=== PATIENT | female | born 1950 | race Caucasian/White ===

== ENCOUNTER 2017-09-07 21:54 | Inpatient (IN) | payer OTHER ==
[~2017-09-07] VITALS: Ht 154.9 cm; Wt 54.1 kg
[2017-09-07 23:04] LABS: HEMATOCRIT 38.7 % (36.0-46.0); HEMOGLOBIN 13.6 G/DL (11.9-15.5); MCH 30.9 PG (29.0-34.0); MCHC 35.1 G/DL (30.0-36.0); PLATELET COUNT 160 K/uL (156-360); RBC DIS.WIDTH-SD 41.9 % (39-53); WHITE BLOOD COUNT 3.6 K/uL (4.1-10.2)
[2017-09-07 23:12] LABS: ALBUMIN 4.3 g/dL (3.2-4.8); CHLORIDE 107 mEq/L (99-109); POTASSIUM 3.6 mEq/L (3.7-5.4); SODIUM 140 mEq/L (136-147)
[2017-09-07 23:14] LABS: GLUCOSE 95 mg/dL (70-99); TOTAL PROTEIN 6.6 g/dL (6.4-8.3)
[2017-09-07 23:16] LABS: TOTAL BILIRUBIN 0.4 mg/dL (0.0-1.0)
[2017-09-07 23:18] LABS: ALKALINE PHOSPHATASE 103 IU/L (3-129); CREATININE 0.8 mg/dL (0.6-1.3); GFR ESTIMATE (CALCULATED) > 59 mL/min/
[2017-09-07 23:19] LABS: UREA NITROGEN (BUN) 9 mg/dL (9-23)
[2017-09-07 23:20] LABS: AST (GOT) 19 IU/L (2-34)
[2017-09-07 23:21] LABS: ALT (GPT) 15 IU/L (3-49)
[2017-09-07 23:22] LABS: TROP-I INTERPRETATION NEGATIVE; TROPONIN-I < 0.01 ng/mL (0.0-0.30)
[2017-09-08] MEDS ORDERED: CLONAZEPAM1 MG PO (01:06)
[2017-09-08] MEDS ORDERED: LISINOPRIL20 MG PO (01:06)
[2017-09-08] MEDS ORDERED: VENTOLIN HFA18 GM IH (01:07)
[2017-09-08] MEDS ORDERED: IMDUR120 MG PO (01:07)
[2017-09-08] MEDS ORDERED: TRAZODONE HCL50 MG PO (01:07)
[2017-09-08] MEDS ORDERED: AMLODIPINE BESYL5 MG PO (01:07)
[2017-09-08] MEDS ORDERED: PROZAC20 MG PO (01:07)
[2017-09-08] MEDS ORDERED: ADULT ASPIRIN81 MG PO (01:08)
[2017-09-08] MEDS ORDERED: ERGOCALCIF50000 UNIT PO (01:08)
[2017-09-08] MEDS ORDERED: LIPITOR40 MG PO (01:08)
[2017-09-08 01:22] LABS: APPEARANCE CLEAR ((CLEAR)); BILIRUBIN NEGATIVE; BLOOD SMALL; COLOR STRAW ((YELLOW)); GLUCOSE (STRIP) NEGATIVE; KETONES NEGATIVE; LEUKOCYTES SMALL; NITRITE NEGATIVE; PROTEIN (STRIP) NEGATIVE; UROBILINOGEN 0.2 MG/DL (0.2-1.0)
[2017-09-08 01:28] LABS: BACTERIA RARE /HPF; EPITHELIAL CELLS 1+ /HPF; MUCUS NONE SEEN /LPF; RED BLOOD CELLS 0-5 /HPF (0-5); UCUL ADDED? NO; WHITE BLOOD CELLS 0-5 /HPF (0-5)
[2017-09-08 04:55] VITALS: BP 140/71
[2017-09-08 05:20] VITALS: BP 140/71
[2017-09-08 06:16] LABS: HEMATOCRIT 37.9 % (36.0-46.0); MCHC 34.3 G/DL (30.0-36.0); MCV 87.5 FL (83-99); PLATELET COUNT 147 K/uL (156-360); RBC DIS.WIDTH-CV 12.9 % (11.8-14.6); RBC DIS.WIDTH-SD 41.9 % (39-53); RED BLOOD COUNT 4.33 M/uL (3.80-5.20); WHITE BLOOD COUNT 3.9 K/uL (4.1-10.2)
[2017-09-08 06:29] LABS: TROP-I INTERPRETATION NEGATIVE; TROPONIN-I < 0.01 ng/mL (0.0-0.30)
[2017-09-08 06:38] LABS: ALBUMIN 4.2 G/DL (3.2-4.8); ALKALINE PHOSPHATASE 82 IU/L (3-129); ALT (GPT) 13 IU/L (3-49); AST (GOT) 17 IU/L (2-34); CHLORIDE 103 MEQ/L (99-109); CREATININE 0.7 MG/DL (0.6-1.3); GFR ESTIMATE (CALCULATED) > 59 mL/min/; GLUCOSE 125 mg/dL (70-99); POTASSIUM 3.4 MEQ/L (3.7-5.4); SODIUM 139 MEQ/L (136-147); TOTAL BILIRUBIN 0.3 MG/DL (0.0-1.0); UREA NITROGEN (BUN) 7 mg/dL (9-23)
[2017-09-08 08:25] VITALS: BP 118/59
[2017-09-08 12:29] VITALS: BP 133/58
[2017-09-08 12:36] LABS: TROP-I INTERPRETATION NEGATIVE; TROPONIN-I < 0.01 ng/mL (0.0-0.30)
[2017-09-08 17:22] VITALS: BP 101/55
[2017-09-08 20:29] VITALS: BP 131/64
[2017-09-09] VITALS (7 sets, daily range): BP systolic 117–153; BP diastolic 60–82
[2017-09-09 05:56] LABS: HEMATOCRIT 35.4 % (36.0-46.0); HEMOGLOBIN 12.2 G/DL (11.9-15.5); MCH 30.8 PG (29.0-34.0); MCHC 34.5 G/DL (30.0-36.0); MCV 89.4 FL (83-99); PLATELET COUNT 139 K/uL (156-360); RBC DIS.WIDTH-CV 13.4 % (11.8-14.6); RBC DIS.WIDTH-SD 44.1 % (39-53); RED BLOOD COUNT 3.96 M/uL (3.80-5.20); WHITE BLOOD COUNT 7.4 K/uL (4.1-10.2)
[2017-09-09 06:43] LABS: CHLORIDE 111 MEQ/L (99-109); CREATININE 0.7 MG/DL (0.6-1.3); GFR ESTIMATE (CALCULATED) > 59 mL/min/; GLUCOSE 154 mg/dL (70-99); SODIUM 140 MEQ/L (136-147); UREA NITROGEN (BUN) 9 mg/dL (9-23)
[2017-09-09 06:44] LABS: POTASSIUM 4.6 MEQ/L (3.7-5.4)
[2017-09-10 04:01] VITALS: BP 138/71
[2017-09-10 07:00] VITALS: BP 137/73
[2017-09-10] MEDS ORDERED: ADVAIR HFA120 INHALA IH (09:26)
[2017-09-10] MEDS ORDERED: BENZONATATE100 MG PO (09:26)
[2017-09-10] MEDS ORDERED: INCRUSE ELLI62.5 MCG IH (09:26)
[2017-09-10] MEDS ORDERED: PREDNISONE10 MG PO (09:26)
[2017-09-10] MEDS ORDERED: GUAIFENESI100 MG/5 M PO (09:26)
[2017-09-10] MEDS ORDERED: LEVAQUIN750 MG PO (09:26)
[2017-09-10] MEDS ORDERED: FLONASE16 G1 BOTH NARES (09:26)
== END 2017-09-10 13:01 | disposition home or self-care (01) | DRG 190 ==
LOC: EME 21:54 → 2EAST 09-08 02:59 → EDOF 09-08 02:59 → ENRESERV 09-08 03:02 → 2EAST 09-08 04:59
PROVIDERS: Hospitalist; Internal Medicine; Physician Assistant
DX: J44.0 Chronic obstructive pulmonary disease with (acute) lower respiratory infection (principal); J18.9 Pneumonia, unspecified organism; J44.1 Chronic obstructive pulmonary disease with (acute) exacerbation; E87.6 Hypokalemia; E78.5 Hyperlipidemia, unspecified; I10 Essential (primary) hypertension; F41.9 Anxiety disorder, unspecified; F32.9 Major depressive disorder, single episode, unspecified; E78.00 Pure hypercholesterolemia, unspecified; I25.10 Atherosclerotic heart disease of native coronary artery without angina pectoris; F17.210 Nicotine dependence, cigarettes, uncomplicated; Z79.82 Long term (current) use of aspirin; I25.2 Old myocardial infarction; Z95.5 Presence of coronary angioplasty implant and graft
CPT/HCPCS: 71045; 71046; 80048; 80053; 81003; 83605; 84484; 85027; 87040; 87070; 87205; 87449; 93005; 94640; 94640 76; 94760; 94799; 99202; 99281; 99285; J0456; J1644; J1956; J2405; J2920; J7030